=== PATIENT | male | born 1960 | race Caucasian/White ===

== ENCOUNTER → 2025-02-13 | Outpatient (CLI) | payer OTHER ==
[~2025-02-13] MED LIST: ADVA1AER8 INH; GABA-1490 PO; HYDR-3363 PO; MIRT45TA4 PO; MORP-137 PO; OMEP-358 PO; PROAAER10 INH; SIMV40TA20 PO; TAB-TAB2 PO; TEMA15CA2 PO; TRAZ-252 PO; [UNRECOGNIZED DRUG - CODE] PO
== END ==
LOC: M PLARAD 10:48
PROVIDERS: ATTEND Student in an Organized Health Care Education/Training Program
DX: R91.8 Other nonspecific abnormal finding of lung field (principal)
CPT/HCPCS: 78815; A9552

== ENCOUNTER 2025-02-28 07:15 | Day surgery (SDC) | payer OTHER ==
[~2025-02-28] VITALS: Ht 165.1 cm; Wt 58.2 kg
[~2025-02-28 07:15] MED LIST changes: +ACET-683 PO; +ATOG60TA PO; +ATOR40TA75 PO; +CLOP75TA2 PO; +ELIQ5TAB PO; +ENTR1TAB PO; +EZET10TA57 PO; +FLUO40CA PO; +METO1TAB87 PO; +MULT-90 PO; +PANT40TA29 PO; +PROA1AER2; +SIME80CH6 PO; +TRAM50TA2 PO; +TRAZ-257 PO; +TREL1AER INH; +UBRO50TA PO
[2025-02-28] MEDS: LR 1,000 ML IV SCH (07:35)
[2025-02-28 08:22] LABS: INR 0.98
[2025-02-28] MEDS: LIDOCAINE PRES-FREE 2% 10 ML AMP INH ONE (08:33)
[2025-02-28] MEDS: ALBUTEROL SULFATE 2.5 MG/0.5 ML INH CONCENTRATE NEB SOLN INH ONE (08:34)
[2025-02-28] MEDS ORDERED: ETOMIDATE 20 MG/10 ML VIAL As Ordered ONE (08:49)
[2025-02-28] MEDS ORDERED: ROCURONIUM BROMIDE 50MG/5ML VIAL As Ordered ONE (08:50)
[2025-02-28] MEDS ORDERED: dexAMETHasone 4 MG/ML 1 ML VIAL As Ordered ONE (08:51)
[2025-02-28] MEDS ORDERED: ONDANSETRON 4MG 2ML VIAL As Ordered ONE (08:51)
[2025-02-28] MEDS ORDERED: MIDAZOLAM INJ 2 MG/2 ML VIAL As Ordered ONE (08:53)
[2025-02-28] MEDS: CETACAINE SPRAY 5 GM As Ordered ONE (09:16)
[2025-02-28] MEDS: EPINEPHrine 1 MG/10 ML SYRINGE 1.5IN As Ordered ONE (09:46)
[2025-02-28] MEDS ORDERED: SUGAMMADEX SODIUM 200 MG/2 ML VIAL As Ordered ONE (10:24)
[2025-02-28] MEDS: THROMBIN 5,000 UNITS VIAL As Ordered ONE (10:44)
[2025-02-28] MEDS ORDERED: ONDANSETRON 4MG 2ML VIAL IV PRN (10:45)
[2025-02-28] MEDS ORDERED: HYDROMORPHONE HCL 0.5 MG/0.5 ML SYRINGE IV PRN (10:45)
[2025-02-28 12:07] VITALS: BP 110/62; TEMP 97.8; O2SAT 94
== END 2025-02-28 12:10 | disposition home or self-care (01) ==
LOC: M SDC 07:15
PROVIDERS: ATTEND Internal Medicine Pulmonary Disease
DX: J84.10 Pulmonary fibrosis, unspecified (principal); J98.4 Other disorders of lung; J43.2 Centrilobular emphysema; J96.11 Chronic respiratory failure with hypoxia; F17.218 Nicotine dependence, cigarettes, with other nicotine-induced disorders; I10 Essential (primary) hypertension; I48.91 Unspecified atrial fibrillation; I25.10 Atherosclerotic heart disease of native coronary artery without angina pectoris; G47.30 Sleep apnea, unspecified; E78.00 Pure hypercholesterolemia, unspecified; Z79.899 Other long term (current) drug therapy; Z79.01 Long term (current) use of anticoagulants; Z79.02 Long term (current) use of antithrombotics/antiplatelets; Z79.51 Long term (current) use of inhaled steroids; Z86.718 Personal history of other venous thrombosis and embolism; Z88.0 Allergy status to penicillin; Z88.6 Allergy status to analgesic agent; Z91.013 Allergy to seafood; K21.9 Gastro-esophageal reflux disease without esophagitis
CPT/HCPCS: 31624; 31628; 31652; 36415; 71045; 76000; 85027; 85610; 85730; 87070; 87102; 87116; 87205; 87206; 88173; 88305; 93005; J0168; J1100; J2250; J2405; J3010